=== PATIENT | female | born 1995 | race Caucasian/White ===

== ENCOUNTER 2022-12-01 14:15 | Emergency (ER) | payer SELFPAY ==
[~2022-12-01] VITALS: Wt 122.5 kg
[2022-12-01] MEDS ORDERED: CYCLOBENZAPRINE5 M3 PO (14:55)
[2022-12-01] MEDS ORDERED: KETOROLAC10 MG PO (14:55)
== END 2022-12-01 15:03 | disposition home or self-care (01) ==
LOC: ED 14:15
DX: M26.602 Left temporomandibular joint disorder, unspecified (principal); Z88.8 Allergy status to other drugs, medicaments and biological substances

== ENCOUNTER 2024-02-26 14:16 | Emergency (ER) | payer SELFPAY ==
[~2024-02-26 14:16] MED LIST: CYCLOBENZAPRINE5 M3 PO; KETOROLAC10 MG PO
[2024-02-26] MEDS ORDERED: BENZOCAINE 20% 11.9 GM GEL T STA (15:19)
[2024-02-26] MEDS ORDERED: Lidocaine Hydrochloride 15 ML UDC PO STA (15:19)
[2024-02-26] MEDS ORDERED: PENICILLIN VK500 MG PO (15:19)
[2024-02-26] MEDS ORDERED: PENICILLIN V POTASSIUM 500 MG TAB PO ONE (15:20)
== END 2024-02-26 14:57 | disposition home or self-care (01) ==
LOC: ED 14:16
DX: K04.7 Periapical abscess without sinus (principal); Z88.8 Allergy status to other drugs, medicaments and biological substances; Z90.89 Acquired absence of other organs; Z90.49 Acquired absence of other specified parts of digestive tract